=== PATIENT | female | born 1950 | race Two or more races ===

== ENCOUNTER 2022-04-23 07:00 | Day surgery (SDC) | payer OTHER ==
[~2022-04-23] VITALS: Ht 152.4 cm; Wt 52.2 kg
[~2022-04-23 07:00] MED LIST: CYMBALTA60 MG PO; DETROL LA4 MG PO; FOLIC PO; GRALISE600 MG PO; IBU800 MG PO; METHO PO; PREDNISONE PO; VITAMIN C PO
== END 2022-04-23 21:25 | disposition home or self-care (01) ==
LOC: CIR.AMB 07:00
PROVIDERS: ATTEND Surgery
DX: C50.411 Malignant neoplasm of upper-outer quadrant of right female breast (principal); R59.0 Localized enlarged lymph nodes; N62 Hypertrophy of breast; Z20.822 Contact with and (suspected) exposure to COVID-19
CPT/HCPCS: 19301; 38525; 19281; 19318; A9541; L8699